=== PATIENT | female | born 1980 | race Caucasian/White ===

== ENCOUNTER 2016-12-18 05:33 | Outpatient (CLI) | payer SELFPAY ==
[~2016-12-18] VITALS: Ht 172.7 cm; Wt 80.5 kg
[~2016-12-18 05:33] MED LIST: ASCRIPTIN1 TAB PO; CALCIUM1 CAP PO; COLACE 100100 MG/CAP PO; FLONASE NASAL S16 GM NS; MIRALAX17 GM/DOSE PO; PERCOCET 325 MG1 TA2 PO; PRENATAL1 TA1 PO; ZYRTEC10 MG PO; [UNRECOGNIZED DRUG - OTHER] PO
[2016-12-18 05:50] VITALS: BP 119/70; PULSE 76; TEMP 97.7
[2016-12-18] MEDS ORDERED: MAGNESIUM100 MG PO (05:57)
[2016-12-18] MEDS ORDERED: PROBIOTIC ACID1 EAC3 PO (05:57)
[2016-12-18] MEDS ORDERED: EPA FISH OIL1 SGL PO (05:57)
[2016-12-18 06:04] VITALS: BP 119/70; PULSE 76; TEMP 97.7
[2016-12-18 07:05] VITALS: BP 122/71; PULSE 79
[2016-12-19] MEDS ORDERED: PERCOCET 325 MG1 TA2 PO (08:48)
[2016-12-19] MEDS ORDERED: IBU600 MG PO (08:48)
== END 2016-12-18 07:17 | disposition home or self-care (01) ==
LOC: LDRO 05:33
DX: O62.9 Abnormality of forces of labor, unspecified (principal); Z3A.39 39 weeks gestation of pregnancy

== ENCOUNTER 2016-12-19 01:57 | Inpatient (IN) | payer SELFPAY ==
[2016-12-19] VITALS (14 sets, daily range): BP systolic 98–119; BP diastolic 53–86; PULSE 57–82; TEMP 97.6–97.7
[~2016-12-19] VITALS: Ht 172.7 cm; Wt 80.9 kg
[~2016-12-19 01:57] MED LIST changes: +EPA FISH OIL1 SGL PO; +MAGNESIUM100 MG PO; +PROBIOTIC ACID1 EAC3 PO
[2016-12-19 02:43] LABS: BASO # 0.1 (0.0-0.2); BASO % 0.7 % (0.0-2.0); EOS # 0.1 (0.0-0.7); EOS % 1.1 % (0-4.0); GRAN # 8.8 (1.4-6.5); HEMOGLOBIN 12.4 g/dl (12.5-16.0); LYMPH # 2.3 (1.2-3.4); LYMPH % 18.8 % (20.0-51.0); MEAN CELL VOLUME 92 fl (80.0-100.0); MEAN CORPUSCULAR HEMOGLOBIN 32 pg (27.0-31.0); MEAN CORPUSCULAR HGB CONC 34 g/dl (33.0-37.0); MEAN PLATELET VOLUME 10.3 fl (7.4-10.4); MONO # 0.8 (0.1-0.6); MONO % 6.5 % (1.7-9.3); PLATELET COUNT 219 K/mm3 (130-400); RED BLOOD COUNT 3.91 M/mm3 (4.10-5.30); REDCELL DISTRIBUTION WIDTH-CV 14.3 % (11.5-14.5); WHITE BLOOD COUNT 12.3 K/mm3 (4.8-10.8)
[2016-12-19 02:45] LABS: HEMATOCRIT 36.1 % (37.0-47.0)
[2016-12-19] MEDS ORDERED: PERCOCET 325 MG1 TA2 PO (08:48)
[2016-12-19] MEDS ORDERED: IBU600 MG PO (08:48)
[2016-12-20 03:15] VITALS: BP 100/59; PULSE 66; TEMP 98
[2016-12-20 07:30] VITALS: BP 97/66; PULSE 58; TEMP 97.9
== END 2016-12-20 17:05 | disposition home or self-care (01) | DRG 775 ==
LOC: LDRO → OB 02:16 → LDR 02:16 → OB 07:00 → LDRO 12-23 16:19
PROVIDERS: Obstetrics & Gynecology
PROC: 10E0XZZ Delivery of Products of Conception, External Approach (ICD-10-PCS; principal; 2016-12-19)
PROC: 0KQM0ZZ Repair Perineum Muscle, Open Approach (ICD-10-PCS; 2016-12-19)
DX: O70.1 Second degree perineal laceration during delivery (principal); O36.0130 Maternal care for anti-D [Rh] antibodies, third trimester, not applicable or unspecified; Z3A.39 39 weeks gestation of pregnancy; Z37.0 Single live birth
CPT/HCPCS: J2405; J2791; J7120

== ENCOUNTER 2019-05-09 04:51 | Inpatient (IN) | payer SELFPAY ==
[~2019-05-09] VITALS: Ht 172.7 cm; Wt 78.6 kg
[2019-05-09] VITALS (13 sets, daily range): BP systolic 93–123; BP diastolic 45–75; PULSE 52–87; TEMP 97.7–98
[~2019-05-09 04:51] MED LIST changes: +IBU600 MG PO
--- NOTE | 2019-05-09 05:00 | NUR ---
G8L5. 39-1. Ambulatory to LDR 5 with spouse. Clean gown on. EFM and TOCO explained and applied. Pt states she has been jack since 0300 this morning. Reports contractions every couple of minutes. Denies LOF. Reports minimal bloody show and good movement. VS taken. SVE /-1. Pt not wanting epidural. 0509: called and updated on pt. See physican notification. 0520: IV started and labs obtained via IV site. LR bolus infusing and Robbin infusing without difficulties. 0535: at bedside. SVE complete per provider. Pt repositioned into stirrups and prepped for delivery. 0545: AROM completed by with large amount of clear fluid noted. Pt starts pushing with contractions. 0553: Spontaneous delivery of viable female infant by . Infant to mother chest where dried and stimulated by nursery RN. Delayed cord clamping requested per pt. Cord clamped X2 and cut by FOB. Care of assumed by MITZI Mojica. 0600: Spontaneous delivery of intact placenta by . Pitocin started at 333mus/hr per protocol. Perineum intact. Fundal message completed per provider. Pericare provided, pads changed, ice pack applied and pt repositioned in bed. Plan of care and safety precautions explained to pt and spouse. Call light within reach. See doctor dications.
[2019-05-09] MEDS ORDERED: MAG-G500 MG PO (05:32)
[2019-05-09 05:39] LABS: BASO # 0.1 (0.0-0.2); BASO % 0.7 % (0.0-2.0); EOS # 0.1 (0.0-0.7); EOS % 1.6 % (0-4.0); GRAN # 5.5 (1.4-6.5); GRAN % 66.2 % (42.2-75.2); HEMOGLOBIN 11.8 g/dl (12.5-16.0); MEAN CELL VOLUME 88 fl (80.0-100.0); MEAN CORPUSCULAR HEMOGLOBIN 29 pg (27.0-31.0); MEAN CORPUSCULAR HGB CONC 33 g/dl (33.0-37.0); MEAN PLATELET VOLUME 10.2 fl (7.4-10.4); MONO # 0.6 (0.1-0.6); MONO % 7.1 % (1.7-9.3); PLATELET COUNT 263 K/mm3 (130-400); RED BLOOD COUNT 4.11 M/mm3 (4.10-5.30); REDCELL DISTRIBUTION WIDTH-CV 16.9 % (11.5-14.5)
[2019-05-09 05:40] LABS: HEMATOCRIT 36.2 % (37.0-47.0)
[2019-05-10 01:15] VITALS: BP 108/58; PULSE 55; TEMP 97.9
[2019-05-10 04:30] VITALS: BP 118/52; PULSE 64; TEMP 98.1
[2019-05-10 07:35] VITALS: BP 98/53; PULSE 61; TEMP 97.9
== END 2019-05-10 10:00 | disposition home or self-care (01) | DRG 807 ==
LOC: LDRO 04:51 → LDR 05:13 → OB 08:29
PROVIDERS: Obstetrics & Gynecology; ADMIT Obstetrics & Gynecology
PROC: 10E0XZZ Delivery of Products of Conception, External Approach (ICD-10-PCS; principal; 2019-05-09)
DX: O99.824 Streptococcus B carrier state complicating childbirth (principal); Z37.0 Single live birth; Z3A.39 39 weeks gestation of pregnancy; Z28.21 Immunization not carried out because of patient refusal
CPT/HCPCS: J2405; J2540; J2590; J2791; J7120

== ENCOUNTER 2021-03-18 19:40 | Outpatient (CLI) | payer SELFPAY ==
[~2021-03-18] VITALS: Ht 172.7 cm; Wt 80.0 kg
[~2021-03-18 19:40] MED LIST changes: +MAG-G500 MG PO
--- NOTE | 2021-03-18 19:50 | NUR ---
G9L6. 39-6. Ambulatory to LDR 3 with spouse. Clean gown on. EFM and TOCO explained and applied. Pt states she has been having contractions every 4-5 mins apart. Denies leaking of fluids. Reports vaginal spotting throughout today. Reports good movmement. Plan of care explained. 1957: SVE 3-4/80/-2. Minimal bloody show noted to exam glove. Assessment completed. Call light within reach.
[2021-03-18 20:30] VITALS: BP 123/61; PULSE 75; TEMP 97.8
--- NOTE | 2021-03-18 21:00 | NUR ---
SVE unchanged. Pt comfortable with discharging home. States she is going to go stay in a hotel in town. Pt does not appear to be in pain with contractions. 2101: called and updated on pts status. See physican notification. 2105: Pt off monitor and instructed to change clothes. 2114: Discharge instructions given to pt. Denies questions at this time. Pt ambulatory off unit and home with spouse.
[2021-03-18 21:06] VITALS: BP 112/61; PULSE 67
== END 2021-03-18 21:15 | disposition home or self-care (01) ==
LOC: LDRO 19:40 → LDR 20:51 → LDRO 21:15
DX: Z34.90 Encounter for supervision of normal pregnancy, unspecified, unspecified trimester (principal); Z3A.00 Weeks of gestation of pregnancy not specified
CPT/HCPCS: OP

== ENCOUNTER 2021-03-19 02:42 | Inpatient (IN) | payer SELFPAY ==
[2021-03-19] VITALS (12 sets, daily range): BP systolic 91–117; BP diastolic 43–75; PULSE 54–78; TEMP 97.7–98.2
[~2021-03-19] VITALS: Ht 172.7 cm; Wt 80.0 kg
--- NOTE | 2021-03-19 03:00 | NUR ---
Ambulatory to unit for labor assessment, accompanied by spouse. Pt discharged from labor and delivery @ 2114, reports "I took a nap, and I think it's time. I almost felt the urge to push just now" SVE 8/100%/0 station, BOW intact. Declines desire for epidural. Breathing well with contractions.
--- NOTE | 2021-03-19 03:12 | NUR ---
at bedside for delivery. 0314: SROM completed by . Clear small amount of clear fluid noted. Pt prepped for delivery and repositioned into footplates. Pt begins pushing with provider. 0354: Spontaneous delivery of viable male infant by . Nares and mouth bulb suctioned by provider. Delayed cord clamped per parents request. to mothers chest where dried and stimulated by nursery RN. Care of assumed by Aurelio CARTAGENA. 0400: Spontaneous delivery of intact placenta by . Pitocin started at 333mus/hr per procotol. Perineum intact. Pericare provided and pads changed. Pt repostitioned and ice pack applied. Plan of care and safety precautions explained. Call light within reach.
[2021-03-19 03:42] LABS: BASO # 0.1 (0.0-0.2); BASO % 0.5 % (0.0-2.0); EOS # 0.2 (0.0-0.7); GRAN # 6.6 (1.4-6.5); HEMOGLOBIN 12.7 g/dl (12.5-16.0); LYMPH # 2.1 (1.2-3.4); LYMPH % 21.6 % (20.0-51.0); MEAN CELL VOLUME 94 fl (80.0-100.0); MEAN CORPUSCULAR HEMOGLOBIN 31 pg (27.0-31.0); MEAN CORPUSCULAR HGB CONC 33 g/dl (33.0-37.0); MONO # 0.7 (0.1-0.6); MONO % 7.5 % (1.7-9.3); PLATELET COUNT 234 K/mm3 (130-400); RED BLOOD COUNT 4.04 M/mm3 (4.10-5.30); REDCELL DISTRIBUTION WIDTH-CV 14.5 % (11.5-14.5)
--- NOTE | 2021-03-19 06:45 | NUR ---
0645- Pt ambulates to bathroom independently with RN standby assist. Voids without difficulty. Pericare performed by Pt. Pt, , and baby escorted to PP room, Oriented. Pt denies needs at this time. Call light at bedside.
--- NOTE | 2021-03-19 10:26 | NUR ---
Initial visit; Parents thanked for offering congratulations for the of their son. Glass Ribbon Machine Operator thanked family for choosing our hospital and offered God's blessings to their family.
[2021-03-20 01:30] VITALS: BP 88/52; PULSE 68; TEMP 98.5
[2021-03-20 07:15] VITALS: BP 98/59; PULSE 66; TEMP 97.9
--- NOTE | 2021-03-20 11:45 | NUR ---
ALL DC PAPERWORK REVIEWED AND UNDERSTOOD INCLUDING ALL FOLLOW UP APPOINTMENTS. PT DENIES FURTHER QUESTIONS OR CONCERNS. AMBULATORY TO POV WITH ALL BELONGINGS ACCOUNTED FOR. STABLE CONDITION UPON DC. THIS NURSE ASSESSED CARSEAT SAFETY AND SECURE PLACEMENT UPON DC.
== END 2021-03-20 11:45 | disposition home or self-care (01) | DRG 807 ==
LOC: LDRO 02:42 → LDR 02:45 → OB 03:00 → LDR 03:00 → LDRO 03:00 → OB 03:54
PROVIDERS: ADMIT Obstetrics & Gynecology
PROC: 10E0XZZ Delivery of Products of Conception, External Approach (ICD-10-PCS; principal; 2021-03-19)
DX: O24.420 Gestational diabetes mellitus in childbirth, diet controlled (principal); Z37.0 Single live birth; Z3A.40 40 weeks gestation of pregnancy
CPT/HCPCS: J2590; J2791; J7120